=== PATIENT | female | born 1975 ===

== ENCOUNTER 2023-08-26 07:59 | Outpatient (REF) | payer OTHER, SELFPAY ==
--- NOTE | ~2023-08-26 | US_ITS ---
EXAMINATION: US PELVIS CLINICAL INFORMATION: Irregular menstruation COMPARISON: None available. TECHNIQUE: Ultrasound of the pelvis is performed using both transabdominal and transvaginal transducers along with Doppler. Transvaginal imaging is performed due to inadequate visualization transabdominally. FINDINGS: Uterus: The uterus is anteverted and measures 2.4 x 4.3 x 5.5 cm. The endometrial thickness is within normal limits measuring 0.6 cm. Multiple uterine fibroids are noted. Reference examples are as follows: A posterior uterine body subserosal fibroid measures 2.1 x 2.1 x 2.2 cm. Additional smaller subserosal fibroids along the posterior uterine body measures 1.3 x 0.8 x 0.6 cm 1.1 x 0.9 x 0.9 cm.. Adnexa: Both ovaries are visualized. There is normal color flow to the adnexa. Right ovary measures 3.5 x 1.6 x 2.4 cm. A corpus luteal cyst is noted within the right ovary measuring 1.4 x 1.2 x 1.4 cm.Left ovary measures 2.1 x 1.3 x 2.1 cm. No free fluid in the pelvis. US/US pelvic and transvaginal IMPRESSION: Small uterine fibroids as detailed.
--- NOTE | ~2023-08-26 | US_ITS ---
EXAMINATION: US THYROID CLINICAL INFORMATION: Multiple thyroid nodules. COMPARISON: None available. TECHNIQUE: Linear transducer grayscale and color Doppler examination with attention to the region of the thyroid. FINDINGS: SIZE: Measurements of the thyroid lobes and nodules are given in sagittal, anteroposterior and transverse dimensions respectively. Right Thyroid Lobe: 4.4 x 1.6 x 1.6 cm, volume 5.9 mL. Parenchyma: The gland echotexture is homogeneous. Thyroid vascularity is normal. Left Thyroid Lobe: 4.0 x 1.5 x 1.2 cm, volume 3.7 mL. Parenchyma: The gland echotexture is homogeneous. Thyroid vascularity is normal. Isthmus: 0.26 cm in maximum AP dimension. Estimated total number of nodules greater than or equal to 1 cm: 1. Eye Glass Frame Polisher nodules are described as follows: 1. Location: Right mid. Size: 1.3 x 1.1 x 1.0 cm, volume 0.8 mL. Nodule characteristics: Composition: Solid (2). Echogenicity: Isoechoic (1). Shape: Taller than wide (3). Margins: Smooth (0). Echogenic Foci: None (0). ACR TI-RADS total points: 6 ACR TI-RADS category: 4 2. Location: Left inferior. Size: 0.65 x 0.62 x 0.59 cm, volume 0.13 mL. Nodule characteristics: Composition: Solid (2). Echogenicity: Hypoechoic (2). Shape: Not taller than wide (0). Margins: Smooth (0). Echogenic Foci: None (0). ACR TI-RADS total points: 4 ACR TI-RADS category: 4 NODES: No lymphadenopathy is seen in the tissue surrounding the thyroid gland. US/US thyroid IMPRESSION: 1. 1.3 cm TR 4 nodule in the right mid thyroid lobe which meets the criteria for follow-up. 2. 0.7 cm left inferior thyroid pole TR 4 nodule which does not meet the criteria for follow-up or FNA. ACR TI-RADS RECOMMENDATION REFERENCE: Ultrasound-guided fine-needle aspiration, followup ultrasound, no further follow up. * TR1 (0 point) and TR2 (2 points): No FNA or follow up. * TR3 (3 points): FNA if more than or equal to 2.5 cm in maximum dimension, followup ultrasound in 1, 3 and 5 years if 1.5 to 2.4 cm in maximum dimension. * TR4 (4-6 points): FNA if more than or equal to 1.5 cm in maximum dimension, followup ultrasound in 1, 2, 3 and 5 years if 1 to 1.4 cm in maximum dimension. * TR5 (more than or equal to 7 points): FNA if more than or equal to 1 cm in maximum dimension, followup ultrasound every year for 5 years if 0.5 to 0.9 cm in maximum dimension. * TR3, TR4 or TR5 nodules that are below the size threshold for followup receive no follow up.
== END 2023-08-26 08:00 | disposition home or self-care (01) ==
LOC: HO.UMASIMG 07:59
PROVIDERS: Visit Provider Registered Nurse
DX: E07.89 Other specified disorders of thyroid (principal); E04.1 Nontoxic single thyroid nodule; N92.6 Irregular menstruation, unspecified
CPT/HCPCS: 76536; 76830; 76856

== ENCOUNTER 2024-12-30 08:20 | Outpatient (REF) | payer OTHER, SELFPAY ==
--- NOTE | ~2024-12-30 | US_ITS ---
EXAMINATION: US THYROID CLINICAL INFORMATION: Nontoxic multinodular thyroid. COMPARISON: Previous thyroid ultrasound August 2023. TECHNIQUE: Linear transducer grayscale and color Doppler examination with attention to the region of the thyroid. FINDINGS: SIZE: Measurements of the thyroid lobes and nodules are given in sagittal, anteroposterior and transverse dimensions, respectively. Right Thyroid Lobe: 4 x 1.9 x 1.7 cm, volume 6.8 mL. Parenchyma: The gland echotexture is normal. Thyroid vascularity is normal. Left Thyroid Lobe: 4.2 x 1.3 x 1.2 cm, volume 3.4 mL. Parenchyma: The gland echotexture is normal. Thyroid vascularity is normal. Isthmus: 0.2 cm in maximum AP dimension. Estimated total number of nodules greater than or equal to 1 cm: 1. Street Car Inspector nodules are described as follows: 1. Location: Right lower lobe. Size: 1.5 x 0.9 x 0.6 cm, volume 0.6 mL. Previously: 1.3 x 1.1 x 1 cm, volume 0.8 mL. Nodule characteristics: Composition: Solid (2). Echogenicity: Isoechoic (1). Shape: Wider than tall. Margins: Smooth (0). Echogenic Foci: None (0). ACR TI-RADS total points: 3. Previous: 6. ACR TI-RADS category: 3. Previous: 4. Significant change in size (>/= 20% in 2 dimensions and minimal increase of 2 mm or 50% or greater increase in volume): No. Change in features: No. Change in ACR TI-RADS risk category: Yes, decreased. 2. Location: Left mid. Size: 0.7 x 0.5 x 0.7 cm, volume 0.2 mL. Previously: 0.7 x 0.6 x 0.6 cm, volume 0.13 mL. Nodule characteristics: Composition: Solid (2). Echogenicity: Isoechoic (1). Shape: Wider than tall. Margins: Smooth (0). Echogenic Foci: None (0). ACR TI-RADS total points: 4. Previous: 4. ACR TI-RADS category: 4. Previous: 4. Significant change in size (>/= 20% in 2 dimensions and minimal increase of 2 mm or 50% or greater increase in volume): No. Change in features: No. Change in ACR TI-RADS risk category: No. 3. Location: Left lower lobe. Size: 0.9 x 0.6 x 0.9 cm, volume 0.3 mL. Newly appreciated. Nodule characteristics: Composition: Complex cystic or spongiform (0). Echogenicity: Anechoic (0). Shape: Wider than tall. Margins: None. Echogenic Foci: None (0). ACR TI-RADS total points: 0. ACR TI-RADS category: 1. There is a 1 x 0.3 x 0.4 cm solid echogenic lesion inferior to the right lobe and 0.7 x 0.4 x 0.6 cm solid echogenic lesion inferior to the left lobe. Question heterogeneous fat versus a fatty-replaced lymph node. These areas were not appreciated on prior exam. US/US thyroid IMPRESSION: Bilateral thyroid nodules, largest a right lower lobe 1.5 cm TR 3 nodule not appreciably changed. Left mid nodule, unchanged. Newly appreciated subcentimeter left lower lobe nodule. Repeat ultrasound follow-up in 1 year recommended. ACR TI-RADS RECOMMENDATION REFERENCE: Ultrasound-guided fine-needle aspiration, followup ultrasound, no further follow up. * TR1 (0 point) and TR 2 (2 points): No FNA or follow up * TR3 (3 points): FNA if more than or equal to 2.5 cm in maximum dimension, followup ultrasound in 1, 3 and 5 years if 1.5 to 2.4 cm in maximum dimension. * TR4 (4-6 points): FNA if more than or equal to 1.5 cm in maximum dimension, followup ultrasound in 1, 2, 3 and 5 years if 1 to 1.4 cm in maximum dimension. * TR5 (more than or equal to 7 points): FNA if more than or equal to 1 cm in maximum dimension, followup ultrasound every year for 5 years if 0.5 to 0.9 cm in maximum dimension. * TR3, TR4 or TR5 nodules that are below the size threshold for follow up receive no follow up. Electronically signed by: Melonie Mackenzie MD 12/31/2024 09:22 AM EDT
--- OUTSIDE RECORDS SUMMARY | 2024-12-30 08:40 | XMS_ITS | Encounter Summary ---
Author Organization [facility] Address [address] [place] [phone] Phone Care Team Providers Care Tunnel Kiln Operator Name Role Phone Pcp, Unknown Primary Care Provider Unavailabl e Encounter Details Date Type Department Care Team (Late st Contact Info) Description 02/28/2022 Transcribe Orders Virtual Department [address] [place] [address] Tete Herring, LENS BLOCK GAUGER [address] [place] [id number] [email or web address] Nontoxic single thyroid nodule (Primary Dx) Social History Tobacco Use Types Packs/Day Years Used Date Smoking Tobacco: Never Assessed Comments Unknown Sex and Gender Information Value Date Recorded Sex Assigned at Female 12/30/2024 8:16 AM EDT Legal Sex Female 6:40 PM EST Gender Identity Female 12/30/2024 8:16 AM EDT Sexual Orientation Straight 12/30/2024 8: 16 AM EDT documented as of this encounter Plan of Treatment Not on file documented as of this encounter Results * US Thyroid Gland (03/18/2022 2:04 PM EST) Anatomical Region Laterality Modality Neck, Head, Chest Ultrasound 03/18/2022 4:52 PM EST Impressions 03/18/2022 4:57 PM EST Bilateral thyroid nodules, as above ACR TI-RADS recommendations TR5 (>7 points) - FNA if >1cm, follow-up if 0.5 - 0.9 cm every year for 5 years TR4 (4-6 points) - FNA if >1.5cm, follow-up if 1 - 1.4 cm in 1, 2, 3 and 5 years TR3 (3 points)- FNA if >2.5cm, follow-up if 1.5 - 2.4 cm in 1, 3 and 5 years TR2 (2 points) & TR1 (0 points) - No FNA and no follow-up indicated These guidelines for management of thyroid nodules are based on the ACR Thyroid Ultrasound Reporting Lexicon, May 2016: https://doi.org/10.1016.j.jacr.2017.01.046 Narrative 03/18/2022 4:57 PM EST US THYROID GLAND History: Thyroid nodule TECHNIQUE: Ultrasound of the thyroid. COMPARISON: There is no prior study available for comparison FINDINGS: Gland size: Right lobe: 4.8 x 1.7 x 1.8 cm. Left lobe: 4.5 x 0.9 x 1.4 cm. Isthmus: 0.2 cm. Nodules (greater than or equal to 0.5 cm): Thyroid nodule #1: Right thyroid lobe, Lower: 1.0 x 1.0 x 1.5 cm. Solid or almost completely solid (2), isoechoic (1), wiwcg-iihf-yypi (0), ill- defined (0) nodule with no echogenic foci (0). TR3. Interval growth: Unknown Thyroid nodule #2: Left thyroid lobe, Mid: 0.8 x 0.8 x 1.4 cm. Solid or almost completely solid (2), hypoechoic (2), lliqy-hdlp-ihgb (0), ill-defined (0) nodule with no echogenic foci (0). TR4. Interval growth: Unknown Thyroid nodule #3: Left thyroid lobe, Lower: 0.7 x 0.5 x 0.8 cm. Solid or almost completely solid (2), hypoechoic (2), umgsf-uoiq-lnip (0), ill-defined (0) nodule with no echogenic foci (0). TR4. Interval growth: Unknown Background echogenicity: Homogeneous. Vascularity: Normal. Cervical lymphadenopathy: None. Procedure Note Radha Lopes MD - 03/18/2022 US THYROID GLAND History: Thyroid nodule TECHNIQUE: Ultrasound of the thyroid. COMPARISON: There is no prior study available for comparison FINDINGS: Gland size: Right lobe: 4.8 x 1.7 x 1.8 cm. Left lobe: 4.5 x 0.9 x 1.4 cm. Isthmus: 0.2 cm. Nodules (greater than or equal to 0.5 cm): Thyroid nodule #1: Right thyroid lobe, Lower: 1.0 x 1.0 x 1.5 cm. Solid or almost completely solid (2), isoechoic (1), saodv-naot-hyhr (0),ill- defined (0) nodule with no echogenic foci (0). TR3. Interval growth:Unknown Thyroid nodule #2: Left thyroid lobe, Mid: 0.8 x 0.8 x 1.4 cm. Solid or almost completely solid (2), hypoechoic (2), ozqmo-enqo-clvt (0),ill- defined (0) nodule with no echogenic foci (0). TR4. Interval growth:Unknown Thyroid nodule #3: Left thyroid lobe, Lower: 0.7 x 0.5 x 0.8 cm. Solid or almost completely solid (2), hypoechoic (2), qhhhb-vhuj-nyvd (0),ill- defined (0) nodule with no echogenic foci (0). TR4. Interval growth:Unknown Background echogenicity: Homogeneous. Vascularity: Normal. Cervical lymphadenopathy: None. IMPRESSION: Bilateral thyroid nodules, as above ACR TI-RADS recommendations TR5 (>7 points) - FNA if >1cm, follow-up if 0.5 - 0.9 cm every year for 5years TR4 (4-6 points) - FNA if >1.5cm, follow-up if 1 - 1.4 cm in 1, 2, 3 and 5years TR3 (3 points)- FNA if >2.5cm, follow-up if 1.5 - 2.4 cm in 1, 3 and 5years TR2 (2 points) & TR1 (0 points) - No FNA and no follow-up indicated These guidelines for management of thyroid nodules are based on the ACRThyroid Ultrasound Reporting Lexicon, May 2016: https://doi.org/10.1016.j.jacr.2017.01.046 us Tete Herring LENS BLOCK GAUGER IMG US THYROID Final Re sult documented in this encounter Visit Diagnoses Diagnosis Nontoxic single thyroid nodule- Primary Nontoxic uninodular goiter Nontoxic single thyroid nodule Nontoxic uninodular goiter documented in this encounter Care Teams Tunnel Kiln Operator Relationship Specialty Start Date End Date Pcp, Unknown PCP - General 04/05/19 documented as of this encounter Additional Source Comments The information contained in this document represents components of the legal health record. It is not the complete legal health record.[facility]
--- OUTSIDE RECORDS SUMMARY | 2024-12-30 08:40 | XMS_ITS | Clinical Summary ---
Author Organization [facility] Address [address] [place] [phone] Phone Care Team Providers Care Enrollment Clerk Name Role Phone Pcp, Unknown Primary Care Provider Unavailabl e Allergies No known active allergies Encounters Date Type Department Care Team Description 12/21/2024 Transcribe Orders Virtual Department [address] [place] [address] Tete Herring CNP Breast screening (Primary Dx) 12/21/2024 Transcribe Orders [facility] [address] [place] [address] Tete Herring CNP from Last 3 Months Social History Tobacco Use Types Packs/Day Years Used Date Smoking Tobacco: Never Assessed Education Answer Date Recorded Are you interested in more education? Not on juan david e 07/05/2022 Are you concerned about learning? Not on file 07/05/2022 No 07/05/2022 No 07/05/2022 Digital Access Answer Date Recorded No 08/06/2022 No 08/06/2022 Reliable internet access at home? Not on file 08/06/2022 Device with a working camera? Not on file Comments Unknown Sex and Gender Information Value Date Recorded Sex Assigned at Female 12/30/2024 8:16 AM EDT Legal Sex Female 6:40 PM EST Gender Identity Female 12/30/2024 8:16 AM EDT Sexual Orientation Straight 12/30/2024 8: 16 AM EDT Last Filed Vital Signs Vital Sign Reading Time Taken Comments Blood Pressure 156/93 04/05/2019 10:15 PM EST Pulse 83 04/05/2019 9:15 PM EST Temperature 37 C (98.6 F) 04/05/2019 6:45 PM EST Respiratory Rate 18 04/05/2019 9:15 PM EST Oxygen Saturation 94% 04/05/2019 10:15 PM EST Inhaled Oxygen Concentration - - Weight - - Height - - Body Mass Index - - Plan of Treatment Health Maintenance Due Date Last Done Comments Adult Td,Tdap Booster 1977 DEPRESSION SCREENING 1989 SMOKING Hx and SMOKELESS TOB ACCO SCREENING 1990 HEPATITIS C SCREENING 05/11/1995 HIV ONE-TIME SCREENING (18-6 5 YEARS) 05/11/1995 PAP SMEAR 1998 MAMMOGRAM 2017 COLOGUARD 2022 COLONOSCOPY 2022 COLORECTAL CANCER SCREENING 2022 FIT TEST 2022 FOBT 2022 SIGMOIDOSCOPY 2022 VIRTUAL COLONOSCOPY 2022 LIPID PANEL 04/06/2024 04/06/2019 INFLUENZA VACCINE (#1) 2024 COVID-19 VACCINE (2 - 2024-2 6 season) 2024 06/21/2020 HEPATITIS A VACCINES Aged Out No long er eligible based on patient's age to complete this topic HIB VACCINES Aged Out No longer eligi ble based on patient's age to complete this topic MENINGOCOCCAL VACCINES (ACWY) Aged Out No longer eligible based on patient's age to complete this topic MENINGOCOCCAL VACCINES (B) Aged Out N o longer eligible based on patient's age to complete this topic PNEUMOCOCCAL VACCINES (0-49 years) Aged Out No longer eligible based on patient's age to complete this topic Medical Devices Not on file Insurance SERAFIN MENDOZA CIGNA WELLFLEET CIGNA WELLFLEET CIGNA WELLFLEET CIGNA WELLFLEET CIGNA WELLFLEET CIGNA WELLFLEET SERAFIN WELLHERMILAT SERAFIN WELLEMREEET Care Teams Enrollment Clerk Relationship Specialty Start Date End Date Pcp, Unknown PCP - General 04/05/19 Additional Source Comments The information contained in this document represents components of the legal health record. It is not the complete legal health record.[facility]
--- OUTSIDE RECORDS SUMMARY | 2024-12-30 08:41 | XMS_ITS | Encounter Summary ---
Author Organization [facility] Address [address] [place] [phone] Phone Care Team Providers Care De Icer Installer Name Role Phone Pcp, Unknown Primary Care Provider Unavailabl e Encounter Details Date Type Department Care Team (Late st Contact Info) Description 08/08/2020 Transcribe Orders Virtual Department [address] [place] [address] Tete Herring, SHOW CARD WRITER [address] [place] [phone] [email or web address] Nontoxic single thyroid nodule (Primary Dx) Social History Tobacco Use Types Packs/Day Years Used Date Smoking Tobacco: Never Assessed Comments Unknown Sex and Gender Information Value Date Recorded Sex Assigned at Female 12/30/2024 8:16 AM EDT Legal Sex Female 6:40 PM EST Gender Identity Female 12/30/2024 8:16 AM EDT Sexual Orientation Straight 12/30/2024 8 :16 AM EDT documented as of this encounter Plan of Treatment Not on file documented as of this encounter Visit Diagnoses Diagnosis Nontoxic single thyroid nodule- Primary Nontoxic uninodular goiter documented in this encounter Care Teams De Icer Installer Relationship Specialty Start Date End Date Pcp, Unknown PCP - General 04/05/19 documented as of this encounter Additional Source Comments The information contained in this document represents components of the legal health record. It is not the complete legal health record.[facility]
--- OUTSIDE RECORDS SUMMARY | 2024-12-30 08:41 | XMS_ITS | Encounter Summary ---
Author Organization [facility] Address [address] [place] [phone] Phone Care Team Providers Care Production Weigher Name Role Phone Pcp, Unknown Primary Care Provider Unavailabl e Encounter Details Date Type Department Care Team (Late st Contact Info) Description 08/08/2020 Ancillary Orders Virtual Department [address] [place] [address] Tete Herring, PRODUCT MANAGER [employer] [address] [place] [phone] [email or web address] Breast screening Social History Tobacco Use Types Packs/Day Years [...] as of this encounter Visit Diagnoses Diagnosis Breast screening Breast screening, unspecified documented in this encounter Care Teams Production Weigher Relationship Specialty Start Date End Date Pcp, Unknown PCP - General 04/05/19 documented as of this encounter Additional Source Comments The information contained in this document represents components of the legal health record. It is not the complete legal health record.[facility]
== END 2024-12-30 08:21 | disposition home or self-care (01) ==
LOC: HO.UMASIMG 08:20
PROVIDERS: Visit Provider Registered Nurse
DX: E04.1 Nontoxic single thyroid nodule (principal)
CPT/HCPCS: 76536

== ENCOUNTER → 2024-12-30 15:39 | Outpatient (BNV) | payer OTHER, SELFPAY | PROVIDERS: Visit Provider Radiology Diagnostic Radiology | DX: E04.2 Nontoxic multinodular goiter (principal) | CPT/HCPCS: 76536 ==